=== PATIENT | female | born 1965 | race Caucasian/White ===

== ENCOUNTER → 2016-09-19 | Outpatient (CLI) | payer MEDICAID ==
--- NOTE | 2016-09-19 11:24 | DX ---
DEXA Bone Mineral Densitometry Clinical Indications: Osteoporosis screening in a 51-year-old perimenopausal female on Synthroid ther apy. Comparison: None. Technique: Bone Mineral Densitometry (BMD) by Dual Energy X-Ray Absorptiometry (DEXA) was performed u tilizing the [employer] scanner. The lumbar spine was evaluated in the AP projection. The bilate ral hips and left forearm were evaluated in the AP projection. Vertebral fracture assessment was also performed. AP Lumbar Spine: The L1, L2, L3 and L4 vertebral bodies were evaluated. BMD: 1.113 gm/cm2 T-score: -0.7 SD Z-score: 0.2 SD AP Left Hip: Femoral neck. BMD: 0.865 gm/cm2 T-score: -1.2 SD Z-score: -0.2 SD AP Right Hip: Femoral neck. BMD: 0.829 gm/cm2 T-score: -1.5 SD Z-score: -0.4 SD AP Left Forearm, 09/10: BMD: 0.754 gm/cm2 T-score: -1.4 SD Z-score: -1.1 SD Vertebral Fracture Assessment: No significant fracture deformity. Conclusion: Considering the lowest measured site, the patient's bone density is low; osteopenic ( -2. 5 < T-score < -1 ). The ten year risk for any major osteoporotic fracture is 5.3% and for a hip fracture is 0.5%. Any bone loss in this patient is probably related to aging or estrogen deficiency. Recommendations: To prevent osteoporosis and to promote bone density, consider the following recommen dations: 1. Pursue a regular regimen of weightbearing and muscle strengthening exercises. 2. Optimize daily calcium intake. 3. Check serum hydroxy vitamin D3 (normal >30ng/ml). 4. Ensure daily intake of vitamin D is 800 international units. 5. Consider follow-up DEXA scan in two years to assess the rate of bone loss in this patient.
--- NOTE | 2016-09-19 12:29 | MA ---
Screening Digital Mammogram with Digital Breast Tomosynthesis Clinical Indications: Routine screening. Technique: Standard cephalocaudal projections are obtained. Digital breast tomosynthesis was perform ed in the MLO projection with reconstruction at 1.0 mm slice thickness and composite MLO views recons tructed. This examination is processed by the CAD computer aided detection system. Comparison: August 08, 2015; June 20, 2014; and studies dating back to October 31, 2008. Breast density: D; The breasts are extremely dense, which lowers the sensitivity of mammography. Findings: CAD was reviewed. There are no new masses, new clusters of microcalcifications, or significant axillary lymphadenopathy . Impression: Negative mammogram. BI-RADS 1. Recommendation: Routine screening mammogram is recommended in one year. Dense mammographic pattern limits the sensitivity of mammography in this patient. If there is a clini leopoldo palpable abnormality, recommend additional imaging with ultrasound if clinically indicated. [facility] will send a result letter to the patient. Negative mammography should not preclude additional workup of a clinically suspicious finding. The patient's information is entered into a reminder system with a target due date for her next mammo gram.
== END ==
LOC: FIMAGING 08:41
PROVIDERS: ATTEND Obstetrics & Gynecology
DX: Z12.31 Encounter for screening mammogram for malignant neoplasm of breast (principal); Z13.820 Encounter for screening for osteoporosis; M85.80 Other specified disorders of bone density and structure, unspecified site; N95.1 Menopausal and female climacteric states; Z79.890 Hormone replacement therapy
CPT/HCPCS: G0202